=== PATIENT | male | born 1945 | race Caucasian/White ===

== ENCOUNTER 2016-10-13 11:00 | Outpatient (RCR) | payer MEDICARE, BC ==
[~2016-10-13 11:00] MED LIST: 00186-0372-20 IH; ALEVE 220MG220 MG PO; AMOXICILLIN 8751 TAB PO; ASPIRIN E.C. 8181 MG PO; B-121000 MCG PO; CARTIA XT300 MG PO; DALIRESP500 MCG PO; FLONASEALLERGY NS; GLUCOPHAGE1000 MG PO; IMDUR 30MG30 MG/TAB PO; IPRATROPIUM BROM3 M1 IH; NEURONTIN300 MG/CAP PO; ROBITUSSIN100 MG/5 M PO; SINGULAIR 110 MG/TAB PO; SYNTHROID0.05 MG/TA PO; ZYRTEC 10MG10 MG PO
== END 2016-11-01 09:25 | disposition still patient (30) ==
LOC: MKS.ESL.PT 11:00
DX: R53.1 Weakness (principal); Z98.890 Other specified postprocedural states
CPT/HCPCS: G8978-GP; G8979-GP; G8980-GP

== ENCOUNTER 2016-11-04 09:19 | Inpatient (IN) | payer MEDICARE, BC ==
[2016-11-04] VITALS (236 sets, daily range): BP systolic 94–114; BP diastolic 62–86; PULSE 70–135; TEMP 97.5–98.3; O2SAT 69–100
[~2016-11-04] VITALS: Ht 177.8 cm; Wt 104.0 kg
[2016-11-04 10:07] LABS: BASO # 0.1 (0.0-0.2); BASO % 0.6 % (0.0-2.0); EOS # 0.2 (0.0-0.7); GRAN # 6.6 (1.4-6.5); GRAN % 66.7 % (42.2-75.2); LYMPH # 2.2 (1.2-3.4); LYMPH % 21.8 % (20.0-51.0); MEAN CELL VOLUME 83 fl (80.0-100.0); MEAN CORPUSCULAR HGB CONC 32 g/dl (33.0-37.0); MEAN PLATELET VOLUME 9.1 fl (7.4-10.4); MONO # 0.9 (0.1-0.6); MONO % 8.5 % (1.7-9.3); PLATELET COUNT 272 K/mm3 (130-400); REDCELL DISTRIBUTION WIDTH-CV 16.2 % (11.5-14.5)
[2016-11-04 10:08] LABS: HEMATOCRIT 35.6 % (42.0-52.0); HEMOGLOBIN 11.3 g/dl (13.5-18.0); MEAN CORPUSCULAR HEMOGLOBIN 26 pg (27.0-31.0)
[2016-11-04 10:11] LABS: INR 1.7 (0.8-3.0); PROTHROMBIN TIME 19.7 SECONDS (9.7-12.8)
[2016-11-04 10:14] LABS: PARTIAL THROMBOPLASTIN TIME 33.9 SECONDS (26.0-37.0)
[2016-11-04 10:27] LABS: ADJUSTED CALCIUM 9.1 mg/dL (8.4-10.2); ALBUMIN 3.8 gm/dL (3.5-5.0); BILIRUBIN,TOTAL 0.8 mg/dL (0.0-1.0); CALCIUM 8.9 mg/dL (8.4-10.2); CREATININE, serum 0.92 mg/dL (0.66-1.25); POTASSIUM 4.6 mmol/L (3.4-5.0); TOTAL PROTEIN 7.3 gm/dL (6.4-8.2)
[2016-11-04] MEDS ORDERED: LIPITOR 40MG TA40 MG PO (10:55)
[2016-11-04] MEDS ORDERED: INCRUSE EL62.5 MCG/A INH (10:57)
[2016-11-04] MEDS ORDERED: PRINIVIL5 MG (10:58)
[2016-11-04] MEDS ORDERED: LOPRESSOR 550 MG/TAB (10:58)
[2016-11-04] MEDS ORDERED: COUMADIN 5MG5 MG/TAB PO (11:00)
[2016-11-04] MEDS ORDERED: COUMADIN 22.5 MG/TAB (11:01)
[2016-11-04 11:07] LABS: TROPONIN-I 0.067 ng/mL (0.000-0.034)
[2016-11-05 00:34] VITALS: BP 113/65; PULSE 73; TEMP 98
[2016-11-05 03:48] VITALS: BP 110/75; PULSE 72; TEMP 97.5
[2016-11-05 08:23] VITALS: BP 106/62; PULSE 82; TEMP 97.8
[2016-11-05 11:06] VITALS: BP 105/67; PULSE 77; TEMP 97.5
[2016-11-05 11:12] LABS: PROTHROMBIN TIME 22.4 SECONDS (9.7-12.8)
[2016-11-05 15:16] VITALS: BP 123/68; PULSE 75; TEMP 98.9
[2016-11-05 19:55] VITALS: BP 123/67; PULSE 78; TEMP 97.7
[2016-11-06 00:24] VITALS: BP 118/71; PULSE 72; TEMP 97
[2016-11-06 03:39] VITALS: BP 117/67; PULSE 70; TEMP 97.5
[2016-11-06 07:18] LABS: MEAN CELL VOLUME 83 fl (80.0-100.0); MEAN CORPUSCULAR HGB CONC 32 g/dl (33.0-37.0); MEAN PLATELET VOLUME 9.5 fl (7.4-10.4); PLATELET COUNT 277 K/mm3 (130-400); RED BLOOD COUNT 4.02 M/mm3 (4.20-5.60); REDCELL DISTRIBUTION WIDTH-CV 16.1 % (11.5-14.5); WHITE BLOOD COUNT 7.9 K/mm3 (4.8-10.8)
[2016-11-06 07:20] LABS: HEMATOCRIT 33.3 % (42.0-52.0); HEMOGLOBIN 10.5 g/dl (13.5-18.0); MEAN CORPUSCULAR HEMOGLOBIN 26 pg (27.0-31.0)
[2016-11-06 07:23] LABS: INR 2.1 (0.8-3.0); PROTHROMBIN TIME 23.8 SECONDS (9.7-12.8)
[2016-11-06 07:25] VITALS: BP 108/61; PULSE 70; TEMP 97.7
[2016-11-06 07:33] LABS: CREATININE, serum 0.88 mg/dL (0.66-1.25); POTASSIUM 4.4 mmol/L (3.4-5.0)
[2016-11-06] MEDS ORDERED: BETAPACE AF160 MG PO (12:24)
[2016-11-06] MEDS ORDERED: PRINIVIL5 MG PO (12:30)
== END 2016-11-06 13:27 | disposition home or self-care (01) | DRG 310 ==
LOC: COL.ER 09:19 → IMCU 12:10 → MEDICAL 18:45
PROVIDERS: Emergency Medicine; Internal Medicine
PROC: 5A2204Z Restoration of Cardiac Rhythm, Single (ICD-10-PCS; principal; 2016-11-04)
DX: I48.91 Unspecified atrial fibrillation (principal); I10 Essential (primary) hypertension; I25.10 Atherosclerotic heart disease of native coronary artery without angina pectoris; R74.8 Abnormal levels of other serum enzymes; E78.5 Hyperlipidemia, unspecified; Z95.0 Presence of cardiac pacemaker; Z79.01 Long term (current) use of anticoagulants; Z95.3 Presence of xenogenic heart valve; Z87.891 Personal history of nicotine dependence; Z95.1 Presence of aortocoronary bypass graft
CPT/HCPCS: 99223-AI; 99232-AI; 99239; J1160; J2250; J3010; J7030; J7050

== ENCOUNTER → 2017-01-11 | Outpatient (CLI) | payer MEDICARE, BC ==
[~2017-01-11] MED LIST changes: +BETAPACE 80MG80 MG PO; +BETAPACE AF160 MG PO; +COUMADIN 22.5 MG/TAB; +COUMADIN 5MG5 MG/TAB PO; +INCRUSE EL62.5 MCG/A INH; +LIPITOR 40MG TA40 MG PO; +LOPRESSOR 550 MG/TAB; +PRINIVIL5 MG; +PRINIVIL5 MG PO
== END ==
LOC: COL.RAD 10:44
DX: R06.02 Shortness of breath (principal); Z95.1 Presence of aortocoronary bypass graft; Z95.0 Presence of cardiac pacemaker

== ENCOUNTER 2017-01-16 13:00 | Outpatient (RCR) | payer MEDICARE, BC ==
[~2017-01-16 13:00] MED LIST changes: -BETAPACE 80MG80 MG PO
== END 2017-01-19 | disposition home or self-care (01) ==
LOC: COL.CR
DX: Z48.812 Encounter for surgical aftercare following surgery on the circulatory system (principal); Z95.1 Presence of aortocoronary bypass graft; I05.0 Rheumatic mitral stenosis; I05.9 Rheumatic mitral valve disease, unspecified; I25.10 Atherosclerotic heart disease of native coronary artery without angina pectoris

== ENCOUNTER 2017-02-09 06:58 | Day surgery (SDC) | payer MEDICARE, BC ==
[~2017-02-09] VITALS: Ht 177.8 cm; Wt 104.0 kg
[2017-02-09] VITALS (12 sets, daily range): BP systolic 103–123; BP diastolic 51–82; PULSE 60–69; TEMP 96.8–97.5
[2017-02-09 07:45] LABS: INR 1.6 (0.8-3.0)
[2017-02-09 07:51] LABS: CALCIUM 8.8 mg/dL (8.4-10.2); CREATININE, serum 0.99 mg/dL (0.66-1.25); POTASSIUM 4.2 mmol/L (3.4-5.0)
[2017-02-09] MEDS ORDERED: PRINIVIL5 MG PO (08:06)
[2017-02-09] MEDS ORDERED: BETAPACE 80MG80 MG PO (08:07)
[2017-02-09] MEDS ORDERED: COUMADIN 5MG5 MG/TAB PO (08:09)
[2017-02-09 08:28] LABS: HEMATOCRIT 42.6 % (42.0-52.0); HEMOGLOBIN 13.5 g/dl (13.5-18.0); MEAN CELL VOLUME 79 fl (80.0-100.0); MEAN CORPUSCULAR HEMOGLOBIN 25 pg (27.0-31.0); MEAN CORPUSCULAR HGB CONC 32 g/dl (33.0-37.0); MEAN PLATELET VOLUME 9.5 fl (7.4-10.4); PLATELET COUNT 261 K/mm3 (130-400); RED BLOOD COUNT 5.37 M/mm3 (4.20-5.60); REDCELL DISTRIBUTION WIDTH-CV 20.7 % (11.5-14.5); WHITE BLOOD COUNT 7.1 K/mm3 (4.8-10.8)
== END 2017-02-09 13:49 | disposition home or self-care (01) ==
LOC: COL.CAR 06:58
PROVIDERS: Internal Medicine Cardiovascular Disease
DX: I25.10 Atherosclerotic heart disease of native coronary artery without angina pectoris (principal); R94.39 Abnormal result of other cardiovascular function study; R06.02 Shortness of breath; R07.9 Chest pain, unspecified; Z95.5 Presence of coronary angioplasty implant and graft; E11.9 Type 2 diabetes mellitus without complications; J44.9 Chronic obstructive pulmonary disease, unspecified; E78.5 Hyperlipidemia, unspecified; G47.33 Obstructive sleep apnea (adult) (pediatric); Z95.1 Presence of aortocoronary bypass graft; I27.2 Other secondary pulmonary hypertension; Z95.0 Presence of cardiac pacemaker; Z79.82 Long term (current) use of aspirin; Z79.01 Long term (current) use of anticoagulants; Z79.899 Other long term (current) drug therapy; Z87.891 Personal history of nicotine dependence; I48.0 Paroxysmal atrial fibrillation; Z95.2 Presence of prosthetic heart valve
CPT/HCPCS: C1760; J2250; J3010; Q9967

== ENCOUNTER 2017-03-04 16:14 | Emergency (ER) | payer MEDICARE, BC ==
[~2017-03-04] VITALS: Ht 177.8 cm; Wt 106.8 kg
[~2017-03-04 16:14] MED LIST changes: +BETAPACE 80MG80 MG PO
[2017-03-04 16:15] VITALS: TEMP 98.5
[2017-03-04] MEDS ORDERED: ZYRTEC 10MG10 MG PO (17:07)
[2017-03-04 17:59] VITALS: BP 164/99; PULSE 78
== END 2017-03-04 18:05 | disposition home or self-care (01) ==
LOC: COL.ER 16:14
DX: H57.11 Ocular pain, right eye (principal); B99.9 Unspecified infectious disease; H10.89 Other conjunctivitis

== ENCOUNTER → 2019-06-17 | Outpatient (CLI) | payer MEDICARE, BC | LOC: COL.RAD 12:38 | DX: N20.1 Calculus of ureter (principal); K76.89 Other specified diseases of liver | CPT/HCPCS: Q9967 ==

== ENCOUNTER 2019-06-27 12:52 | Day surgery (SDC) | payer MEDICARE, BC ==
[~2019-06-27] VITALS: Ht 177.8 cm; Wt 95.0 kg
[~2019-06-27 12:52] MED LIST changes: +CARDIZEM CD 18180 MG PO; +CYMBALTA 20MG20 MG PO
[2019-06-27 13:57] VITALS: BP 126/62; PULSE 75; TEMP 97.4
[2019-06-27 15:16] VITALS: TEMP 97.9
[2019-06-27 15:33] VITALS: BP 102/57; PULSE 67
--- NOTE | 2019-06-27 15:33 | NUR ---
Patient returns to room per cart and is awake and alert. Denies pain or nausea. IV fluids infusing and site is free of redness or swelling. Spouse in room. Temp 97.5 and sats 95% on room air. Denies need to urinate.
[2019-06-27] MEDS ORDERED: NORCO 325 MG-51 TAB PO (15:39)
[2019-06-27 15:48] VITALS: BP 117/60; PULSE 69
--- NOTE | 2019-06-27 15:48 | NUR ---
Drinking water. Continues to deny pain or nausea. Spouse in room.
[2019-06-27 16:03] VITALS: BP 132/74; PULSE 72
--- NOTE | 2019-06-27 16:03 | NUR ---
Eating ice cream. Continues to deny pain or nausea. IV fluids infusing.
--- NOTE | 2019-06-27 16:12 | NUR ---
Assisted up to the bathroom. Able to void and denies pain with urination. States that he did have some blood in the urine with urination. Returns to room and dresses self. Denies need for pain medication.
--- NOTE | 2019-06-27 16:25 | NUR ---
Given dismissal instructions and voices understanding of home cares and follow up as scheduled on 07/05/19. Instructed to force fluids to help clear urine.
--- NOTE | 2019-06-27 16:30 | NUR ---
Patient dismissed to home per private vehicle driven by spouse and taken to the front door by Lissy WHITE and assisted into car. Dismissal instructions in hand.
== END 2019-06-27 16:30 | disposition home or self-care (01) ==
LOC: SDCO 12:52
DX: N20.1 Calculus of ureter (principal); I48.91 Unspecified atrial fibrillation; N40.0 Benign prostatic hyperplasia without lower urinary tract symptoms; I25.10 Atherosclerotic heart disease of native coronary artery without angina pectoris; E11.42 Type 2 diabetes mellitus with diabetic polyneuropathy; E78.5 Hyperlipidemia, unspecified; E03.9 Hypothyroidism, unspecified; G47.33 Obstructive sleep apnea (adult) (pediatric); E88.81 Metabolic syndrome and other insulin resistance; E53.8 Deficiency of other specified B group vitamins; J30.1 Allergic rhinitis due to pollen; J30.81 Allergic rhinitis due to animal (cat) (dog) hair and dander; J44.9 Chronic obstructive pulmonary disease, unspecified; I11.0 Hypertensive heart disease with heart failure; I50.30 Unspecified diastolic (congestive) heart failure; Z79.82 Long term (current) use of aspirin; Z79.84 Long term (current) use of oral hypoglycemic drugs; Z87.891 Personal history of nicotine dependence; Z80.1 Family history of malignant neoplasm of trachea, bronchus and lung; Z82.5 Family history of asthma and other chronic lower respiratory diseases; Z82.49 Family history of ischemic heart disease and other diseases of the circulatory system; Z95.1 Presence of aortocoronary bypass graft
CPT/HCPCS: C1769; C2617; J0690; J1100; J2405; J2704; J3010; J7030; Q9967

== ENCOUNTER 2020-03-11 08:04 | Day surgery (SDC) | payer MEDICARE, BC ==
[~2020-03-11] VITALS: Ht 177.8 cm; Wt 94.0 kg
[~2020-03-11 08:04] MED LIST changes: +NORCO 325 MG-51 TAB PO
[2020-03-11 08:58] VITALS: BP 121/76; PULSE 63; TEMP 97.3
--- NOTE | 2020-03-11 09:00 | NUR ---
Pt to chemical lab supervisor,report to Elina Coughlin.
[2020-03-11 09:01] LABS: HEMOGLOBIN 11.3 g/dl (13.5-18.0); MEAN CELL VOLUME 78 fl (80.0-100.0); MEAN CORPUSCULAR HEMOGLOBIN 24 pg (27.0-31.0); MEAN CORPUSCULAR HGB CONC 31 g/dl (33.0-37.0); MEAN PLATELET VOLUME 9.3 fl (7.4-10.4); PLATELET COUNT 194 K/mm3 (130-400); RED BLOOD COUNT 4.67 M/mm3 (4.20-5.60); REDCELL DISTRIBUTION WIDTH-CV 19.5 % (11.5-14.5)
[2020-03-11] MEDS ORDERED: GLUCOPHAGE1000 MG PO (09:04)
[2020-03-11] MEDS ORDERED: CARTIA XT180 MG PO (09:04)
[2020-03-11 09:05] LABS: HEMATOCRIT 36.4 % (42.0-52.0)
[2020-03-11] MEDS ORDERED: MULTAQ400 MG PO (09:05)
[2020-03-11] MEDS ORDERED: CYMBALTA 20MG20 MG PO (09:05)
[2020-03-11] MEDS ORDERED: 00186-0372-20 IH (09:06)
[2020-03-11] MEDS ORDERED: SINGULAIR 110 MG/TAB PO (09:06)
[2020-03-11 09:08] LABS: INR 1.4 (0.8-3.0); PROTHROMBIN TIME 15.8 SECONDS (9.7-12.8)
[2020-03-11 09:10] LABS: PARTIAL THROMBOPLASTIN TIME 35.3 SECONDS (26.0-37.0)
[2020-03-11 09:14] LABS: CREATININE, serum 0.88 (0.66-1.25); POTASSIUM 4.5 mmol/L (3.4-5.0)
[2020-03-11 09:45] LABS: THYROID STIMULATING HORMONE 2.01 uIU/mL (0.465-4.680)
[2020-03-11 09:46] VITALS: BP 106/71; PULSE 79
--- NOTE | 2020-03-11 09:46 | NUR ---
Pt returned from slabber,report from Elina Coughlin.
[2020-03-11 10:05] VITALS: BP 110/65; PULSE 79
[2020-03-11 10:20] VITALS: BP 99/72; PULSE 78
[2020-03-11 10:21] VITALS: BP 124/77; PULSE 66
--- NOTE | 2020-03-11 10:24 | NUR ---
SEE MERGE DOCUMENTATION FOR MEDICATION ADMINISTRATION AND INTRA/POST PROCEDURE SEDATION ASSESSMENTS.
[2020-03-11 10:40] VITALS: BP 91/74; PULSE 75
--- NOTE | 2020-03-11 11:05 | NUR ---
Discharge instructions given to pt.Pt verbalizes understanding.INT removed,catheter tip intact.Pt escorted out via wheelchair by this nurse.
== END 2020-03-11 11:47 | disposition home or self-care (01) ==
LOC: COL.CAR 08:04
PROVIDERS: Internal Medicine Cardiovascular Disease
DX: I48.0 Paroxysmal atrial fibrillation (principal); I10 Essential (primary) hypertension; I27.20 Pulmonary hypertension, unspecified; I25.10 Atherosclerotic heart disease of native coronary artery without angina pectoris; E11.9 Type 2 diabetes mellitus without complications; J44.9 Chronic obstructive pulmonary disease, unspecified; M48.00 Spinal stenosis, site unspecified; Z79.01 Long term (current) use of anticoagulants; Z95.2 Presence of prosthetic heart valve; Z95.1 Presence of aortocoronary bypass graft; Z79.899 Other long term (current) drug therapy; Z95.0 Presence of cardiac pacemaker; Z87.891 Personal history of nicotine dependence
CPT/HCPCS: J2704

== ENCOUNTER 2020-11-23 07:53 | Inpatient (IN) | payer MEDICARE, BC ==
[~2020-11-23 07:53] MED LIST changes: +CARTIA XT180 MG PO; +MULTAQ400 MG PO
[2020-11-23 08:25] VITALS: BP 130/58; PULSE 66; TEMP 98
[2020-11-23 08:47] LABS: BASO % 0.3 % (0.0-2.0); EOS % 0.2 % (0-4.0); GRAN # 5.2 (1.4-6.5); GRAN % 77.3 % (42.2-75.2); HEMOGLOBIN 11.7 g/dl (13.5-18.0); LYMPH # 0.7 (1.2-3.4); LYMPH % 10.7 % (20.0-51.0); MEAN CELL VOLUME 82 fl (80.0-100.0); MEAN CORPUSCULAR HEMOGLOBIN 25 pg (27.0-31.0); MEAN CORPUSCULAR HGB CONC 31 g/dl (33.0-37.0); MONO # 0.7 (0.1-0.6); MONO % 10.7 % (1.7-9.3); PLATELET COUNT 173 K/mm3 (130-400); RED BLOOD COUNT 4.61 M/mm3 (4.20-5.60); REDCELL DISTRIBUTION WIDTH-CV 19.4 % (11.5-14.5)
[2020-11-23 08:55] LABS: INR 1.4 (0.8-3.0); PROTHROMBIN TIME 15.6 SECONDS (9.7-12.8)
[2020-11-23 08:57] LABS: ALBUMIN 3.9 gm/dL (3.5-5.0); BILIRUBIN,TOTAL 1.1 mg/dL (0.0-1.0); CALCIUM 8.6 mg/dL (8.4-10.2); CREATININE, serum 0.85 (0.66-1.25); MAGNESIUM 1.8 mg/dL (1.6-2.3); TOTAL PROTEIN 7.4 gm/dL (6.4-8.2)
[2020-11-23 11:53] VITALS: BP 119/66; PULSE 63; TEMP 97.9
[2020-11-23] MEDS ORDERED: ASPIRIN 81M81 MG/TA2 PO (12:29)
--- NOTE | 2020-11-23 12:58 | NUR ---
Pt has been here since 0830 am but was unsure of plan of care since QTc was elevated prior to initiation. Called Elizabeth's nurse Micaela earlier and awaited call back until 1200 that confirmed that he wanted to keep patient and move forward with the sotolol trial. Initiated sotolol per orders and verified home meds and initial assessment completed. pt has all needs in room, educated on hospital policies and food orders. REsting in bed, denies needs or pain, will continue to monitor. INT to LFA.
--- NOTE | 2020-11-23 15:55 | NUR ---
Child Psychiatrist met with patient to discuss discharge planning. Patient lives in [place] with his , Katerine (ph#[phone]) and sees Dr. Chapa for primary care. Patient obtains medications from [facility] with no difficulties. Patient uses a CPAP and no other DME. Patient is independent with ADLS and plans to return home upon discharge. Patient states he has DPOA-HC completed, however SW did not locate copy in EMR. Patient states his likely has a copy. SW contacted Katerine to discuss discharge planning. Katerine is in agreement with patient returning home at discharge and will try to email SW a copy of DPOA-HC today. SW will continue to follow.
[2020-11-23 16:10] VITALS: BP 116/66; PULSE 62; TEMP 97.4
--- NOTE | 2020-11-23 18:13 | NUR ---
Pt resting in bed, doing well, denies needs or chest pain, will give bedside shift report to nightshift nurse who will reusme care.
[2020-11-23 21:31] VITALS: BP 127/71; PULSE 65; TEMP 97.4
[2020-11-24] VITALS (7 sets, daily range): BP systolic 113–129; BP diastolic 65–79; PULSE 60–67; TEMP 97.4–98.3
--- NOTE | 2020-11-24 01:42 | NUR ---
Patient pleasant, A/Ox4. Patient denies chest pain, SOB/dyspnea, N/V, or dizziness. Patient independent in the room. Ambulates to the bathroom with steady gait. VS within normal range. All scheduled meds given per DEC. Call light within reach. Patient denies any needs at this time.
--- NOTE | 2020-11-24 05:49 | NUR ---
Patient states he rested pretty good over the night. No c/o pain or discomfort. No acute distress noted throughout the night. VS stable. Ice-water provided per patient request. Call light within reach. Patient denies further needs at this time.
[2020-11-24 06:56] LABS: BASO % 0.3 % (0.0-2.0); GRAN % 74.2 % (42.2-75.2); HEMATOCRIT 37.5 % (42.0-52.0); HEMOGLOBIN 11.8 g/dl (13.5-18.0); LYMPH # 0.9 (1.2-3.4); MEAN CELL VOLUME 81 fl (80.0-100.0); MEAN CORPUSCULAR HEMOGLOBIN 26 pg (27.0-31.0); MEAN CORPUSCULAR HGB CONC 32 g/dl (33.0-37.0); MEAN PLATELET VOLUME 10.3 fl (7.4-10.4); MONO # 0.8 (0.1-0.6); MONO % 11.2 % (1.7-9.3); PLATELET COUNT 163 K/mm3 (130-400); RED BLOOD COUNT 4.61 M/mm3 (4.20-5.60); REDCELL DISTRIBUTION WIDTH-CV 19.2 % (11.5-14.5)
[2020-11-24 07:09] LABS: CALCIUM 8.8 mg/dL (8.4-10.2); CREATININE, serum 0.81 (0.66-1.25); MAGNESIUM 1.9 mg/dL (1.6-2.3); POTASSIUM 4.5 mmol/L (3.4-5.0)
--- NOTE | 2020-11-24 09:07 | NUR ---
Assessment complete. Patient ambulating in room independently on entry. No complaints of pain or discomfort. IV site working well. Patient is aware of his POC. Denies other needs at this time. Will continue to monitor. QtC with in limits for administration. Call light is in reach.
--- NOTE | 2020-11-24 18:34 | NUR ---
Patient has had an uneventful shift. No complaints of pain or discomfort. He is aware of his POC for cardioversion tomorrow, he is familiar with the process. No other needs were expressed at this time.
[2020-11-25] VITALS (12 sets, daily range): BP systolic 106–122; BP diastolic 65–91; PULSE 60–72; TEMP 97.2–97.7
--- NOTE | 2020-11-25 01:47 | NUR ---
Patient pleasant, A/O x4. Patient denies chest pain, SOB, N/V, headache or dizziness. All scheduled meds given per MAR. Informed patient regarding NPO after midnight for Cardioversion procedure in the morning. Patient verbalized understanding. Call light within reach. Patient denies any needs at this time.
--- NOTE | 2020-11-25 02:16 | NUR ---
Blood transfusing infusing well at 100ml/hr. VS stable. No any adverse reaction noted.
--- NOTE | 2020-11-25 06:22 | NUR ---
NPO maintained from midnight. Patient slept well throughout the night. No acute distress noted. Call light within reach. Patient denies any needs at this time.
[2020-11-25 07:29] LABS: BASO % 0.4 % (0.0-2.0); EOS % 0.1 % (0-4.0); GRAN # 5.2 (1.4-6.5); GRAN % 73.3 % (42.2-75.2); HEMATOCRIT 38.8 % (42.0-52.0); HEMOGLOBIN 12.2 g/dl (13.5-18.0); LYMPH % 14.5 % (20.0-51.0); MEAN CELL VOLUME 82 fl (80.0-100.0); MEAN CORPUSCULAR HEMOGLOBIN 26 pg (27.0-31.0); MEAN CORPUSCULAR HGB CONC 31 g/dl (33.0-37.0); MEAN PLATELET VOLUME 9.9 fl (7.4-10.4); MONO # 0.8 (0.1-0.6); PLATELET COUNT 170 K/mm3 (130-400); RED BLOOD COUNT 4.73 M/mm3 (4.20-5.60); REDCELL DISTRIBUTION WIDTH-CV 19.6 % (11.5-14.5)
[2020-11-25 07:43] LABS: CALCIUM 8.9 mg/dL (8.4-10.2); CREATININE, serum 0.87 (0.66-1.25); MAGNESIUM 1.8 mg/dL (1.6-2.3); POTASSIUM 4.6 mmol/L (3.4-5.0)
--- NOTE | 2020-11-25 08:00 | NUR ---
Pt left for CV at this time.
[2020-11-25] MEDS ORDERED: BETAPACE 80MG80 MG PO (08:56)
--- NOTE | 2020-11-25 09:45 | NUR ---
Pt back from cardioversion at this time. States he feels good. Denies CP, burning to skin from pad sites and SOB. POC discussed with patient who verbalizes understanding. Water provided and patient ordering breakfast at this time.
--- NOTE | 2020-11-25 12:16 | NUR ---
Discharge paperwork and instructions reviewed with patient. All questions answered at this time. IV to LFA dc'd catheter tip intact.
--- NOTE | 2020-11-25 12:29 | NUR ---
Chainer placed copy of DPOA-HC in patient's chart which designates his , Katerine.
--- NOTE | 2020-11-25 12:37 | NUR ---
Pt walked out of facility at this time.
== END 2020-11-25 12:37 | disposition home or self-care (01) | DRG 310 ==
LOC: MEDICAL 07:53
PROVIDERS: ADMIT Internal Medicine Cardiovascular Disease
PROC: 5A2204Z Restoration of Cardiac Rhythm, Single (ICD-10-PCS; principal; 2020-11-23)
DX: I48.0 Paroxysmal atrial fibrillation (principal); I11.0 Hypertensive heart disease with heart failure; I50.9 Heart failure, unspecified; G47.33 Obstructive sleep apnea (adult) (pediatric); J44.9 Chronic obstructive pulmonary disease, unspecified; G89.29 Other chronic pain; M54.9 Dorsalgia, unspecified; E03.9 Hypothyroidism, unspecified; E11.9 Type 2 diabetes mellitus without complications; D64.9 Anemia, unspecified; Z87.442 Personal history of urinary calculi; Z95.0 Presence of cardiac pacemaker; Z95.1 Presence of aortocoronary bypass graft
CPT/HCPCS: J2704

== ENCOUNTER → 2020-12-07 | Outpatient (CLI) | payer MEDICARE, BC ==
[~2020-12-07] MED LIST changes: +ASPIRIN 81M81 MG/TA2 PO
== END ==
LOC: COL.RAD 12:53
DX: R18.8 Other ascites (principal)
CPT/HCPCS: Q9967

== ENCOUNTER → 2021-01-26 | Outpatient (CLI) | payer MEDICARE, BC ==
[~2021-01-26] VITALS: Ht 177.8 cm; Wt 89.0 kg
[~2021-01-26] MED LIST changes: +BETAPACE 120MG120 MG PO; +LASIX 40MG TABL40 MG PO; +OXYGEN NASAL.CANN; +TYLENOL PM EXTR1 TA1 PO
[2021-01-26 06:58] VITALS: BP 117/81; PULSE 70
== END ==
LOC: COL.RAD 06:35
DX: R18.8 Other ascites (principal)

== ENCOUNTER 2021-04-30 07:58 | Day surgery (SDC) | payer MEDICARE, BC ==
[~2021-04-30] VITALS: Ht 177.8 cm; Wt 92.1 kg
[~2021-04-30 07:58] MED LIST changes: -LASIX 40MG TABL40 MG PO; -OXYGEN NASAL.CANN; -TYLENOL PM EXTR1 TA1 PO
--- NOTE | 2021-04-30 08:21 | NUR ---
Spoke with Idalia WHITE with Cardiology regarding anticoagulant status. Patient states just started his Coumadin dosing this morning. Cardiology nurse states clarified yesterday and patient has a Watchman device, no need for MARTHA prior to CV.
[2021-04-30 08:47] LABS: BASO # 0.1 (0.0-0.2); EOS # 0.2 (0.0-0.7); EOS % 2.8 % (0-4.0); GRAN % 65.7 % (42.2-75.2); HEMATOCRIT 42.7 % (42.0-52.0); HEMOGLOBIN 13.7 g/dl (13.5-18.0); LYMPH # 1.1 (1.2-3.4); MEAN CELL VOLUME 87 fl (80.0-100.0); MEAN CORPUSCULAR HEMOGLOBIN 28 pg (27.0-31.0); MEAN CORPUSCULAR HGB CONC 32 g/dl (33.0-37.0); MEAN PLATELET VOLUME 9.6 fl (7.4-10.4); MONO # 0.7 (0.1-0.6); MONO % 11.8 % (1.7-9.3); PLATELET COUNT 190 K/mm3 (130-400); RED BLOOD COUNT 4.92 M/mm3 (4.20-5.60); REDCELL DISTRIBUTION WIDTH-CV 17.6 % (11.5-14.5)
[2021-04-30 08:55] LABS: INR 1.2 (0.8-3.0); PROTHROMBIN TIME 13.5 SECONDS (9.7-12.8)
[2021-04-30] MEDS ORDERED: COUMADIN 5MG5 MG/TAB PO (08:56)
[2021-04-30 08:57] LABS: PARTIAL THROMBOPLASTIN TIME 32.1 SECONDS (26.0-37.0)
[2021-04-30] MEDS ORDERED: SYNTHROID0.05 MG/TA PO (08:57)
[2021-04-30 08:58] LABS: CREATININE, serum 0.81 (0.66-1.25); MAGNESIUM 1.9 mg/dL (1.6-2.3); POTASSIUM 4.7 mmol/L (3.4-5.0)
[2021-04-30] MEDS ORDERED: LASIX 40MG TABL40 MG PO (08:59)
[2021-04-30 09:01] VITALS: BP 126/85; PULSE 64
[2021-04-30 09:24] VITALS: BP 103/80; PULSE 67
[2021-04-30 09:28] LABS: THYROID STIMULATING HORMONE 1.73 uIU/mL (0.465-4.680)
[2021-04-30 09:30] VITALS: BP 116/72; PULSE 69
[2021-04-30 09:45] VITALS: BP 108/79; PULSE 65
[2021-04-30 10:00] VITALS: BP 119/85; PULSE 70
[2021-04-30 10:15] VITALS: BP 126/81; PULSE 67
--- NOTE | 2021-04-30 10:35 | NUR ---
DC instructions reviewed with pt, he expresses understanding. He has tolerated sips of water without issue, has denied desire for food. He is steady on feet in room. INT DC'd with catheter intact. He will be assisted out by wheelchair when arrives to pick him up.
== END 2021-04-30 10:34 | disposition home or self-care (01) ==
LOC: COL.CAR 07:58
PROVIDERS: Internal Medicine Cardiovascular Disease
DX: I48.0 Paroxysmal atrial fibrillation (principal); E11.9 Type 2 diabetes mellitus without complications; J44.9 Chronic obstructive pulmonary disease, unspecified; I25.10 Atherosclerotic heart disease of native coronary artery without angina pectoris; I44.1 Atrioventricular block, second degree; I27.20 Pulmonary hypertension, unspecified; I11.0 Hypertensive heart disease with heart failure; I08.3 Combined rheumatic disorders of mitral, aortic and tricuspid valves; I50.9 Heart failure, unspecified; E78.5 Hyperlipidemia, unspecified; G47.33 Obstructive sleep apnea (adult) (pediatric); E07.9 Disorder of thyroid, unspecified; G89.29 Other chronic pain; M54.9 Dorsalgia, unspecified; D64.9 Anemia, unspecified; Z79.82 Long term (current) use of aspirin; Z79.899 Other long term (current) drug therapy; Z87.891 Personal history of nicotine dependence; Z79.890 Hormone replacement therapy; Z79.84 Long term (current) use of oral hypoglycemic drugs; Z95.1 Presence of aortocoronary bypass graft; Z95.0 Presence of cardiac pacemaker
CPT/HCPCS: J2704

== ENCOUNTER 2021-09-02 15:45 | Inpatient (IN) | payer MEDICARE, BC ==
[~2021-09-02] VITALS: Ht 177.8 cm; Wt 89.7 kg
[~2021-09-02 15:45] MED LIST changes: +LASIX 40MG TABL40 MG PO
[2021-09-02 17:30] LABS: BASO # 0.1 K/mm3 (0.0-0.2); BASO % 0.7 % (0.0-2.0); EOS # 0.1 K/mm3 (0.0-0.7); EOS % 1.5 % (0-4.0); GRAN # 6.5 K/mm3 (1.4-6.5); GRAN % 76.3 % (42.2-75.2); LYMPH # 0.8 K/mm3 (1.2-3.4); LYMPH % 9.1 % (20.0-51.0); MEAN CELL VOLUME 72 fl (80.0-100.0); MEAN CORPUSCULAR HGB CONC 30 g/dl (33.0-37.0); MEAN PLATELET VOLUME 8.8 fl (7.4-10.4); MONO # 0.9 K/mm3 (0.1-0.6); MONO % 11.1 % (1.7-9.3); PLATELET COUNT 414 K/mm3 (130-400); RED BLOOD COUNT 2.86 M/mm3 (4.20-5.60); REDCELL DISTRIBUTION WIDTH-CV 21.8 % (11.5-14.5)
[2021-09-02 17:37] LABS: HEMATOCRIT 20.7 % (42.0-52.0); HEMOGLOBIN 6.1 g/dl (13.5-18.0); INR 1.9 (0.8-3.0); MEAN CORPUSCULAR HEMOGLOBIN 21 pg (27.0-31.0); PROTHROMBIN TIME 21.1 SECONDS (9.7-12.8)
[2021-09-02 17:50] LABS: ALANINE AMINOTRANSFERASE 18 U/L (0-55); ALBUMIN 3.4 gm/dL (3.4-4.8); ALKALINE PHOSPHATASE 98 U/L (40-150); ANION GAP 13 mmol/L (7-16); AST,SGOT 26 U/L (5-34); BILIRUBIN,TOTAL 0.6 mg/dL (0.2-1.2); BLOOD UREA NITROGEN 18 mg/dL (8-26); CALCIUM 8.4 mg/dL (8.4-10.2); CARBON DIOXIDE 20 mmol/L (23-31); CHLORIDE 104 mmol/L (98-107); GLUCOSE 137 mg/dL (70-99); POTASSIUM 4.3 mmol/L (3.5-4.5); SODIUM 137 mmol/L (136-145); TOTAL PROTEIN 7.1 gm/dL (6.2-8.1)
[2021-09-02 17:58] LABS: TROPONIN-I < 0.010 ng/mL (0.00-0.033)
[2021-09-02 20:07] VITALS: BP 127/68; PULSE 79; TEMP 98.4
[2021-09-02 20:35] VITALS: BP 127/73; PULSE 78; TEMP 98.4
[2021-09-02 21:30] VITALS: BP 134/60; PULSE 81; TEMP 98.2
[2021-09-02 21:40] LABS: RETIC # 0.05 M/mm3 (0.02-0.16); RETIC % 1.6 % (0.5-3.52)
--- NOTE | 2021-09-02 21:54 | NUR ---
Patient arrived to the unit, alert and oriented, high blood pressure. Other VS WNL. Blood already transfusing at 60 ml/hr. No reactions reported. Denies pain, nausea, vomiting, dizziness. "feel pretty good". Patient independent. Able to walk and be by himself. Assessment completed.
[2021-09-02] MEDS ORDERED: TYLENOL PM EXTR1 TA1 PO (22:31)
[2021-09-02] MEDS ORDERED: COUMADIN 5MG5 MG/TAB PO (22:34)
--- NOTE | 2021-09-02 23:09 | NUR ---
Transfusion was finished at 2230. Patient stable. Denied any reaactions.
[2021-09-03] VITALS (10 sets, daily range): BP systolic 121–134; BP diastolic 60–83; PULSE 76–89; TEMP 97.5–98.5
[2021-09-03 00:43] LABS: HEMATOCRIT 23.8 % (42.0-52.0); HEMOGLOBIN 6.9 g/dl (13.5-18.0)
--- NOTE | 2021-09-03 03:15 | NUR ---
Patient put on his home CPAP.
--- NOTE | 2021-09-03 06:22 | NUR ---
Patient has not been able to rest, has been receiving blood. No adverse reactions. NPO from midnight. Asking about procedure times. Explained first he will have to GI consult. Waiting for the blood results. Shift report will be given to dayshift RN.
[2021-09-03 06:34] LABS: CALCIUM 8.4 mg/dL (8.4-10.2); CREATININE, serum 0.88 mg/dL (0.72-1.25); POTASSIUM 4.1 mmol/L (3.5-4.5)
[2021-09-03 06:38] LABS: INR 1.8 (0.8-3.0); PROTHROMBIN TIME 19.7 SECONDS (9.7-12.8)
--- NOTE | 2021-09-03 08:30 | NUR ---
ASSESSMENT COMPLETE. PT COOPERATIVE WITH CARES. PT GIVEN FLU SHOT THIS MORNING. PT DENIES PAIN, PALPITATIONS OR DIZZNESS. PT NEEDS A STOOL SAMPLE, BUT UNABLE TO HAVE A BM AT THIS TIME. PT STATES HE HAS NO OTHER NEEDS AT THIS TIME. CALL LIGHT WITHIN REACH.
[2021-09-03 11:09] LABS: HEMATOCRIT 26.1 % (42.0-52.0); HEMOGLOBIN 8.1 g/dl (13.5-18.0)
--- NOTE | 2021-09-03 14:53 | NUR ---
freezer worker met with patient to discuss discharge plan. Patient states he lives at home with his Katerine ([phone]). Patient reports that he is fully independent with his ADL's and does not utilize any DME to assist with mobility. Patient is currently on O2 in room but reports that he has never had to use O2 before. He does have a CPAP machine and receives his supplies through [facility]. PCP is Dr. Chapa and he utilizes [facility] for perscriptions with no cost difficulty. Patient has a DPOA-HC on file that lists his as his agent. Patient is planning on returning home and has no concerns at this time. Discharge plan: Home with
--- NOTE | 2021-09-03 18:06 | NUR ---
PT RESTING IN BED WITH BY HIS SIDE. PT HAS AN ENDOSCOPY AND COLONOSCOPY IN THE MORNING. PT HAS STARTED HIS BOWEL PREP. PT HAD AN OTHERWISE UNEVENTFUL DAY. PT STATES HE HAS NO OTHER NEEDS AT THIS TIME. CALL LIGHT IS WITHIN REACH.
--- NOTE | 2021-09-03 20:30 | NUR ---
Initial shift assessment done- has started the bowel prep for AM egd/colonoscopy-- first stool was loose/liquid,, will continue to assess. NPO after MN, tele on, IV fluids of NS at 60cc/hr. No requests
[2021-09-04] VITALS (9 sets, daily range): BP systolic 108–139; BP diastolic 52–93; PULSE 79–88; TEMP 98.1
--- NOTE | 2021-09-04 06:30 | NUR ---
Up most of the night- stools clear. NPO
[2021-09-04 07:12] LABS: BASO # 0.1 K/mm3 (0.0-0.2); BASO % 0.9 % (0.0-2.0); EOS # 0.2 K/mm3 (0.0-0.7); EOS % 1.9 % (0-4.0); GRAN # 8.6 K/mm3 (1.4-6.5); GRAN % 77.3 % (42.2-75.2); LYMPH # 0.8 K/mm3 (1.2-3.4); LYMPH % 7.6 % (20.0-51.0); MEAN CORPUSCULAR HGB CONC 30 g/dl (33.0-37.0); MEAN PLATELET VOLUME 8.9 fl (7.4-10.4); MONO # 1.2 K/mm3 (0.1-0.6); MONO % 10.9 % (1.7-9.3); PLATELET COUNT 398 K/mm3 (130-400); RED BLOOD COUNT 3.54 M/mm3 (4.20-5.60); REDCELL DISTRIBUTION WIDTH-CV 20.9 % (11.5-14.5)
--- NOTE | 2021-09-04 07:15 | NUR ---
ASSESSMENT COMPLETE. PT COOPERATIVE WITH CARES. BOWEL PREP COMPLETE. PT PREPARED FOR ENDOSCOPY AND COLONOSCOPY PROCEDURES. PT DENIES PAIN, PALPITATIONS OR DIZZINESS. PT STATES HE HAS NO OTHER NEEDS AT THIS TIME. PT RESTING IN BED WAITING FOR ENDOSCOPY TO PICK HIM UP. CALL LIGHT WITHIN REACH.
[2021-09-04 07:27] LABS: HEMATOCRIT 27.3 % (42.0-52.0); HEMOGLOBIN 8.1 g/dl (13.5-18.0); MEAN CELL VOLUME 77 fl (80.0-100.0); MEAN CORPUSCULAR HEMOGLOBIN 23 pg (27.0-31.0)
[2021-09-04 07:30] LABS: INR 1.7 (0.8-3.0); PROTHROMBIN TIME 18.8 SECONDS (9.7-12.8)
[2021-09-04 07:35] LABS: ALBUMIN 3.1 gm/dL (3.4-4.8); CALCIUM 8.6 mg/dL (8.4-10.2); CREATININE, serum 0.92 mg/dL (0.72-1.25); MAGNESIUM 1.7 mg/dL (1.6-2.6); PHOSPHOROUS 2.8 mg/dL (2.3-4.7); POTASSIUM 4.5 mmol/L (3.5-4.5)
--- NOTE | 2021-09-04 07:50 | NUR ---
JERONIMO WHITE FROM ENDOSCOPY TOOK PT DOWN TO ENDO FOR ENDOSCOPY AND COLONOSCOPY PROCEDURES.
--- NOTE | 2021-09-04 08:45 | NUR ---
JERONIMO WHITE BROUGHT PT BACK FROM ENDOSCOPY.
[2021-09-04] MEDS ORDERED: OXYGEN NASAL.CANN (11:42)
--- NOTE | 2021-09-04 14:10 | NUR ---
PT DISCHARGED HOME ON 2L OF O2. I WENT OVER DISCHARGE PAPERWORK WITH PT AND HIS . PAPERWORK SIGNED. IV'S REMOVED. ALL QUESTIONS ANSWERED. PT AND WALKED OUT THROUGH ER TO VEHICLE BY MYSELF.
--- NOTE | 2021-09-04 14:47 | NUR ---
SW informed that patient would be discharging on this day 09/04/21. Nurse informed that physician has ordered for patient to obtain home O2. SW met with patient, and patient stated that his option to obtain O2 services is [facility]. LINDA contacted [facility] staff and faxed documentation to their agency. Patient obtained O2 from agency prior to discharge. Nothing further.
== END 2021-09-04 14:10 | disposition home or self-care (01) | DRG 812 ==
LOC: COL.ER 15:45 → MEDICAL 18:56
PROVIDERS: Emergency Medicine; Internal Medicine Gastroenterology; Physician Assistant; ADMIT Internal Medicine
PROC: 0DB98ZX Excision of Duodenum, Via Natural or Artificial Opening Endoscopic, Diagnostic (ICD-10-PCS; principal; 2021-09-04 08:00)
PROC: 0DJD8ZZ Inspection of Lower Intestinal Tract, Via Natural or Artificial Opening Endoscopic (ICD-10-PCS; 2021-09-04 08:00)
DX: D50.9 Iron deficiency anemia, unspecified (principal); I48.91 Unspecified atrial fibrillation; I25.10 Atherosclerotic heart disease of native coronary artery without angina pectoris; J44.9 Chronic obstructive pulmonary disease, unspecified; G47.33 Obstructive sleep apnea (adult) (pediatric); E11.40 Type 2 diabetes mellitus with diabetic neuropathy, unspecified; E03.9 Hypothyroidism, unspecified; Z79.01 Long term (current) use of anticoagulants; Z95.3 Presence of xenogenic heart valve; Z95.0 Presence of cardiac pacemaker; Z95.1 Presence of aortocoronary bypass graft; Z88.0 Allergy status to penicillin; Z79.84 Long term (current) use of oral hypoglycemic drugs; Z79.82 Long term (current) use of aspirin; Z87.891 Personal history of nicotine dependence; Z87.442 Personal history of urinary calculi
CPT/HCPCS: 99222-AI; 99232-AI; 99239; C9113; J1756; J2405; J2704; J2765; J7030; P9016

== ENCOUNTER 2021-12-31 07:53 | Day surgery (SDC) | payer MEDICARE, BC ==
[~2021-12-31] VITALS: Ht 177.8 cm; Wt 93.6 kg
[2021-12-31] VITALS (10 sets, daily range): BP systolic 104–122; BP diastolic 60–83; PULSE 62–75; TEMP 97.2
[~2021-12-31 07:53] MED LIST changes: +OXYGEN NASAL.CANN; +TYLENOL PM EXTR1 TA1 PO
[2021-12-31 09:07] LABS: HEMATOCRIT 37.9 % (42.0-52.0); HEMOGLOBIN 11.4 g/dl (13.5-18.0); MEAN CELL VOLUME 78 fl (80.0-100.0); MEAN CORPUSCULAR HEMOGLOBIN 24 pg (27-31); MEAN CORPUSCULAR HGB CONC 30 g/dl (33.0-37.0); MEAN PLATELET VOLUME 9.7 fl (7.4-10.4); PLATELET COUNT 221 K/mm3 (130-400); RED BLOOD COUNT 4.84 M/mm3 (4.20-5.60); REDCELL DISTRIBUTION WIDTH-CV 22.5 % (11.5-14.5)
[2021-12-31 09:16] LABS: INR 1.3 (0.8-3.0); PROTHROMBIN TIME 14.9 SECONDS (9.7-12.8)
[2021-12-31 09:19] LABS: PARTIAL THROMBOPLASTIN TIME 30.9 SECONDS (26.0-37.0)
[2021-12-31 09:23] LABS: CALCIUM 8.8 mg/dL (8.4-10.2); CREATININE, serum 1.14 mg/dL (0.72-1.25); POTASSIUM 4.3 mmol/L (3.5-4.5)
--- NOTE | 2021-12-31 09:26 | NUR ---
Pre procedure charting performed after assessing patient. See merge for all intra/post procedure vitals, medications, and interventions.
[2021-12-31] MEDS ORDERED: COREG 6.256.25 MG/TA PO (10:38)
--- NOTE | 2021-12-31 10:52 | NUR ---
Pt back to express from labeler. report received from Jas WHITE. Pt is awake and alert, no complaints. TR band to rt wrist. SR on monitor. POC reviewed with pt and . lunch ordered. call light in reach. wctm.
--- NOTE | 2021-12-31 11:15 | NUR ---
Pt resting comfortably without complaint. Pt is noted to have o2 sats low 90's and occasionally dipping down to 84%. sats bounce up immediately if pt is talking, denies any sob. Prior to procedure, pt was noted to have sats fluctuate 86% to mid 90's with good wavefore. Pt reports does wear cpap with oxygen at night at home.
--- NOTE | 2021-12-31 13:30 | NUR ---
Pt did well during his recovery. TR band has been dc'd with no problem. puncture site dressed with bandaid, folded 2x2 and coban, cms remains intact distal. I reviewed dc,rx and fu instructions with pt and who verbalized understanding. Pt is up and ambulatory with steady gait. IV is dc'd with cath intact. pt is escorted to exit via wheelchair.
== END 2021-12-31 13:45 | disposition home or self-care (01) ==
LOC: COL.CAR 07:53
PROVIDERS: Internal Medicine Cardiovascular Disease
DX: I25.10 Atherosclerotic heart disease of native coronary artery without angina pectoris (principal); Z95.1 Presence of aortocoronary bypass graft
CPT/HCPCS: C1894; J1644; J2250; J3010; Q9967

== ENCOUNTER 2023-07-07 08:53 | Day surgery (SDC) | payer MEDICARE, BC ==
[~2023-07-07] VITALS: Ht 177.8 cm; Wt 106.3 kg
[~2023-07-07 08:53] MED LIST changes: +COREG 6.256.25 MG/TA PO
[2023-07-07 09:30] VITALS: BP 113/74; PULSE 61; TEMP 97.6
[2023-07-07] MEDS ORDERED: TYLENOL 325MG325 MG PO (09:39)
[2023-07-07] MEDS ORDERED: IRON CHEWS15 MG PO (09:40)
[2023-07-07 09:41] LABS: BASO # 0.1 K/mm3 (0.0-0.2); EOS # 0.3 K/mm3 (0.0-0.7); EOS % 3.3 % (0.0-4.0); GRAN # 5.3 K/mm3 (1.4-6.5); GRAN % 66.8 % (42.2-75.2); HEMATOCRIT 50.8 % (42.0-52.0); HEMOGLOBIN 16.5 g/dl (13.5-18.0); LYMPH # 1.3 K/mm3 (1.2-3.4); LYMPH % 16.7 % (20.0-51.0); MEAN CELL VOLUME 89 fl (80.0-100.0); MEAN CORPUSCULAR HEMOGLOBIN 29 pg (27-31); MEAN CORPUSCULAR HGB CONC 33 g/dl (33.0-37.0); MEAN PLATELET VOLUME 9.6 fl (7.4-10.4); MONO # 0.9 K/mm3 (0.1-0.6); MONO % 11.3 % (1.7-9.3); PLATELET COUNT 218 K/mm3 (130-400); RED BLOOD COUNT 5.68 M/mm3 (4.20-5.60); REDCELL DISTRIBUTION WIDTH-CV 15.7 % (11.5-14.5)
[2023-07-07] MEDS ORDERED: ENTRESTO 24 MG1 EACH PO (09:41)
[2023-07-07] MEDS ORDERED: FARXIGA10 PO (09:41)
[2023-07-07] MEDS ORDERED: ALDACTONE 25MG25 M1 PO (09:44)
[2023-07-07 09:52] LABS: INR 1.1 (0.8-3.0); PROTHROMBIN TIME 12.4 SECONDS (9.7-12.8)
[2023-07-07 10:00] LABS: CALCIUM 9.9 mg/dL (8.4-10.2); CREATININE, serum 1.37 mg/dL (0.72-1.25); MAGNESIUM 2.2 mg/dL (1.6-2.6); POTASSIUM 5.6 mmol/L (3.5-4.5)
[2023-07-07 10:20] LABS: THYROID STIMULATING HORMONE 3.554 uIU/mL (0.350-4.940)
[2023-07-07] MEDS ORDERED: BETAPACE 80MG80 MG PO (10:44)
[2023-07-07 10:55] VITALS: BP 101/77; PULSE 79
[2023-07-07 11:00] VITALS: BP 107/71; BP 113/60; PULSE 75; PULSE 82
[2023-07-07 11:15] VITALS: BP 112/72; PULSE 72
[2023-07-07 11:30] VITALS: BP 107/63; BP 112/72; PULSE 72; PULSE 90
[2023-07-07 12:00] VITALS: BP 107/69; PULSE 72
--- NOTE | 2023-07-07 12:10 | NUR ---
DC instructions reviewed with pt and . Both expressed understanding. Pt drank water and juice, ate muffin during recovery period. He has been up to restroom, gait steady. IV DC'd, site wrapped with coban. He is assisted out to 's car by wheelchair with belongings.
== END 2023-07-07 12:10 | disposition home or self-care (01) ==
LOC: COL.CAR 08:53
PROVIDERS: Internal Medicine Cardiovascular Disease
DX: I48.0 Paroxysmal atrial fibrillation (principal); I25.10 Atherosclerotic heart disease of native coronary artery without angina pectoris; I10 Essential (primary) hypertension; E78.5 Hyperlipidemia, unspecified; I34.9 Nonrheumatic mitral valve disorder, unspecified; J44.9 Chronic obstructive pulmonary disease, unspecified; Z95.1 Presence of aortocoronary bypass graft; Z79.899 Other long term (current) drug therapy; Z87.891 Personal history of nicotine dependence; Z98.890 Other specified postprocedural states; Z95.0 Presence of cardiac pacemaker; Z99.81 Dependence on supplemental oxygen
CPT/HCPCS: J7120

== ENCOUNTER 2023-10-31 07:56 | Day surgery (SDC) | payer MEDICARE, BC ==
[~2023-10-31] VITALS: Ht 177.8 cm; Wt 106.8 kg
[~2023-10-31 07:56] MED LIST changes: +ALDACTONE 25MG25 M1 PO; +ENTRESTO 24 MG1 EACH PO; +FARXIGA10 PO; +IRON CHEWS15 MG PO; +TYLENOL 325MG325 MG PO
[2023-10-31] MEDS ORDERED: LR 1,000 ML IV SCH (08:00)
[2023-10-31 08:05] VITALS: BP 114/69; PULSE 68; TEMP 97.7
[2023-10-31] MEDS ORDERED: NS Flush 10 ML SYRINGE PRN ICA (08:15)
[2023-10-31] MEDS ORDERED: NS Flush 10 ML SYRINGE BID ICA SCH (09:00)
[2023-10-31 09:19] LABS: BASO # 0.1 K/mm3 (0.0-0.2); BASO % 1.3 % (0.0-2.0); EOS # 0.4 K/mm3 (0.0-0.7); EOS % 4.9 % (0.0-4.0); GRAN # 5.1 K/mm3 (1.4-6.5); GRAN % 65.9 % (42.2-75.2); HEMATOCRIT 50.9 % (42.0-52.0); HEMOGLOBIN 16.6 g/dl (13.5-18.0); LYMPH # 1.3 K/mm3 (1.2-3.4); LYMPH % 16.4 % (20.0-51.0); MEAN CELL VOLUME 92 fl (80.0-100.0); MEAN CORPUSCULAR HEMOGLOBIN 30 pg (27-31); MEAN CORPUSCULAR HGB CONC 33 g/dl (33.0-37.0); MONO # 0.8 K/mm3 (0.1-0.6); MONO % 10.7 % (1.7-9.3); PLATELET COUNT 203 K/mm3 (130-400); RED BLOOD COUNT 5.56 M/mm3 (4.20-5.60); REDCELL DISTRIBUTION WIDTH-CV 16.6 % (11.5-14.5)
[2023-10-31 09:25] LABS: INR 1.2 (0.8-3.0); PROTHROMBIN TIME 12.9 SECONDS (9.7-12.8)
[2023-10-31 09:28] LABS: PARTIAL THROMBOPLASTIN TIME 35.5 SECONDS (26.0-37.0)
[2023-10-31 09:31] LABS: CALCIUM 10.3 mg/dL (8.4-10.2); CREATININE, serum 1.32 mg/dL (0.72-1.25); MAGNESIUM 1.9 mg/dL (1.6-2.6); POTASSIUM 4.9 mmol/L (3.5-4.5)
[2023-10-31 09:54] LABS: THYROID STIMULATING HORMONE 4.718 uIU/mL (0.350-4.940)
[2023-10-31] MEDS ORDERED: Lidocaine PF 2% (20 MG/ML) 5 ML VIAL ONE (10:07)
[2023-10-31] MEDS ORDERED: Hydrocortisone 1% Cream 30 GM TUBE TP PRN (10:15)
[2023-10-31 10:30] VITALS: BP 103/65; PULSE 72
--- NOTE | 2023-10-31 10:34 | NUR ---
Bedside report provided to CHRISTOPHER Gurrola - vital signs reviewed - all questions answered - pt denies further needs at this time. at bedside
[2023-10-31 10:45] VITALS: BP 107/74; PULSE 64
[2023-10-31 11:00] VITALS: BP 104/67; PULSE 65
[2023-10-31 11:15] VITALS: BP 103/74; PULSE 62
--- NOTE | 2023-10-31 11:50 | NUR ---
pt tolerated recovery period well. vs remained within normal limtis and IV discontinued upon discharge. pt verbalized understanding of discharge instructions and was free from acute concerns and complaints at time of discharge. pt was assisted to main lobby via wheelchair.
== END 2023-10-31 11:54 | disposition home or self-care (01) ==
LOC: COL.CAR 07:56
PROVIDERS: Internal Medicine Cardiovascular Disease
DX: I48.91 Unspecified atrial fibrillation (principal); Z95.1 Presence of aortocoronary bypass graft; Z95.2 Presence of prosthetic heart valve; Z95.810 Presence of automatic (implantable) cardiac defibrillator; E11.9 Type 2 diabetes mellitus without complications; G47.33 Obstructive sleep apnea (adult) (pediatric); Z79.84 Long term (current) use of oral hypoglycemic drugs; Z87.891 Personal history of nicotine dependence
CPT/HCPCS: J2704; J7120

== ENCOUNTER 2023-12-15 13:00 | Outpatient (RCR) | payer MEDICARE, BC | END 2023-12-21 | disposition home or self-care (01) | LOC: COL.CR | DX: I50.22 Chronic systolic (congestive) heart failure (principal) ==

== ENCOUNTER 2024-02-19 12:03 | Outpatient (RCR) | payer MEDICARE, BC | END 2024-02-20 | disposition home or self-care (01) | LOC: COL.CR | DX: I50.22 Chronic systolic (congestive) heart failure (principal) ==